=== PATIENT | female | born 1960 | race Caucasian/White ===

== ENCOUNTER 2023-01-19 11:47 | Outpatient (CLI) | payer BC | END 2023-01-19 11:48 | disposition home or self-care (01) | LOC: BICMAMMO 11:47 | DX: Z12.31 Encounter for screening mammogram for malignant neoplasm of breast (principal); Z98.82 Breast implant status | CPT/HCPCS: 77063; 77067 ==

== ENCOUNTER 2023-09-29 11:50 | Outpatient (CLI) | payer BC ==
[2023-09-29 12:38] LABS: #Basophils 0.07 10x3/uL (0.0-0.2); #Eosinphils 0.05 10x3/uL (0.0-0.5); #Monocytes 0.52 10x3/uL (0.0-1.1); #Neutrophils 3.92 10x3/uL (1.5-8.4); %Eosinophils 0.7 % (0.0-6.0); %Lymphocytes 37.7 % (18.0-47.0); %Monocytes 7.1 % (0.0-10.0); %Neutrophils 53.2 % (40.0-75.0); Hematocrit 39.9 % (34.9-44.5); Hemoglobin 13.8 g/dL (12.0-15.5); Mean Corpuscular HGB CONC 34.6 g/dL (32.0-36.0); Mean Corpuscular Hemoglobin 32.8 pg (27.0-33.0); Mean Corpuscular Volume 94.8 fL (81.6-98.3); Mean Platelet Volume 10.9 fL (7.4-10.4); Platelet Count 236 10x3/uL (150-450); RBC Distribution Width 14.6 % (11.5-14.5); Red Blood Cell (RBC) Count 4.21 10x6/uL (3.90-5.03); White Blood Cell (WBC) Count 7.4 10x3/uL (3.5-10.5)
[2023-09-29 12:55] LABS: Anion Gap 13 mmol/L (10-20); BUN (Urea Nitrogen) 14 mg/dL (9.8-20.1); Calc. Creatinine Clearance 0 mL/min (70-130); Calcium 9.2 mg/dL (7.8-10.44); Carbon Dioxide 24 mmol/L (23-31); Chloride 98 mmol/L (98-107); Estimated GFR 75; Glucose 96 mg/dL (80-115); Potassium 4.2 mmol/L (3.5-5.1); Sodium 131 mmol/L (136-145)
== END 2023-09-29 11:51 | disposition home or self-care (01) ==
LOC: LABBT 11:50
PROVIDERS: ATTEND Surgery
DX: Z01.812 Encounter for preprocedural laboratory examination (principal); N63.20 Unspecified lump in the left breast, unspecified quadrant
CPT/HCPCS: 80048; 85025

== ENCOUNTER 2023-10-03 06:59 | Day surgery (SDC) | payer BC ==
[2023-09-29 12:19] VITALS: BMI 25.1
[2023-10-03] MEDS ORDERED: CEFAZOLIN 2 GM VIAL ONE (07:42)
[2023-10-03] MEDS ORDERED: Sodium Chloride 0.9% 100 ML ONE (07:43)
[2023-10-03] MEDS ORDERED: Bupivacaine 0.25% HCL 30 ML VIAL ONE (08:34)
[2023-10-03] MEDS ORDERED: EPINEPHrine 1 MG/ML VIAL ONE (08:34)
[2023-10-03] MEDS ORDERED: Lidocaine 2% PF 5 ML VIAL ONE (08:35)
[2023-10-03 08:55] LABS: Anion Gap 13 mmol/L (10-20); BUN (Urea Nitrogen) 9 mg/dL (9.8-20.1); Calc. Creatinine Clearance 96 mL/min (70-130); Calcium 8.5 mg/dL (7.8-10.44); Carbon Dioxide 21 mmol/L (23-31); Chloride 103 mmol/L (98-107); Estimated GFR 91; Glucose 92 mg/dL (80-115); Sodium 133 mmol/L (136-145)
[2023-10-03] MEDS ORDERED: PROPOFOL 20 ML ONE (09:04)
[2023-10-03] MEDS ORDERED: Lidocaine 1% PF 5 ML VIAL ONE (09:05)
[2023-10-03] MEDS ORDERED: Ondansetron PF 4 MG/2 ML Vial ONE ×2 (09:05→10:42)
[2023-10-03] MEDS ORDERED: fentaNYL PF 100 MCG/2 ML SYRINGE ONE (09:57)
[2023-10-03] MEDS ORDERED: Dexamethasone 20 MG/5 ML VIAL ONE (10:05)
[2023-10-03] MEDS ORDERED: ePHEDrine Sulfate 50 MG/10 ML VIAL ONE (10:06)
[2023-10-03] MEDS ORDERED: Glycopyrrolate 0.2 MG/ML 5 ML SYRINGE ONE (10:19)
[2023-10-03] MEDS ORDERED: Ketorolac Tromethamine 30 MG (1 mL) VIAL ONE (10:20)
== END 2023-10-03 12:35 | disposition home or self-care (01) ==
LOC: SDC 06:59
PROVIDERS: ATTEND Surgery
PROC: 0HBU0ZZ Excision of Left Breast, Open Approach (ICD-10-PCS; principal; 2023-10-03)
DX: C50.912 Malignant neoplasm of unspecified site of left female breast (principal); Z17.0 Estrogen receptor positive status [ER+]
CPT/HCPCS: 80048; 88307; 88341; 88342; 88360; J0171; J0665; J1100; J1885; J2001; J2405; J2704; J3490

== ENCOUNTER 2023-11-01 07:23 | Day surgery (SDC) | payer BC ==
[2023-11-01] MEDS ORDERED: PROPOFOL 40 ML ONE (10:51)
[2023-11-01] MEDS ORDERED: Midazolam HCl 2 mg/2 ml Vial ONE (11:00)
[2023-11-01] MEDS ORDERED: Lidocaine 2% PF 5 ML VIAL ONE ×2 (11:07→11:13)
[2023-11-01] MEDS ORDERED: Bupivacaine 0.25% HCL 30 ML VIAL ONE (11:13)
[2023-11-01] MEDS ORDERED: Methylene Blue 50 MG/10 ML AMPUL ONE (11:13)
[2023-11-01] MEDS ORDERED: EPINEPHrine 1 MG/ML VIAL ONE (11:13)
[2023-11-01] MEDS ORDERED: CEFAZOLIN 2 GM VIAL ONE (11:22)
[2023-11-01] MEDS ORDERED: Sodium Chloride 0.9% 100 ML ONE (11:22)
[2023-11-01] MEDS ORDERED: Fentanyl 250 MCG/5 ML VIAL ONE (11:29)
[2023-11-01] MEDS ORDERED: Dexamethasone 4 mg/ml Vial ONE (11:41)
[2023-11-01] MEDS ORDERED: Glycopyrrolate 0.2 MG/ML 5 ML SYRINGE ONE (11:46)
[2023-11-01] MEDS ORDERED: Ondansetron PF 4 MG/2 ML Vial ONE (12:16)
[2023-11-01] MEDS ORDERED: PHENYLEPHRINE-NS 100 MCG/ML 10 ML SYRINGE ONE (12:18)
[2023-11-01] MEDS ORDERED: fentaNYL PF 100 MCG/2 ML SYRINGE ONE (12:56)
[2023-11-01] MEDS ORDERED: HYDROcodone/Acetaminophen 5/325 mg Tablet ONE (13:30)
== END 2023-11-01 14:26 | disposition home or self-care (01) ==
LOC: NM 07:23
PROVIDERS: ATTEND Surgery
PROC: 07B60ZZ Excision of Left Axillary Lymphatic, Open Approach (ICD-10-PCS; principal; 2023-11-01)
PROC: 0HBU0ZZ Excision of Left Breast, Open Approach (ICD-10-PCS; principal; 2023-11-01)
DX: C50.112 Malignant neoplasm of central portion of left female breast (principal); N60.92 Unspecified benign mammary dysplasia of left breast; Z17.0 Estrogen receptor positive status [ER+]; N60.32 Fibrosclerosis of left breast; Z79.899 Other long term (current) drug therapy
CPT/HCPCS: 78195; 88305; 88307; 88341; 88342; A9541; C1713; J0171; J0665; J1100; J2001; J2250; J2405; J2704; J3010; J3490; Q9968

== ENCOUNTER 2024-02-13 08:08 | Outpatient (CLI) | payer BC | END 2024-02-13 08:09 | disposition home or self-care (01) | LOC: BICMAMMO 08:08 | PROVIDERS: ATTEND Internal Medicine | DX: M85.89 Other specified disorders of bone density and structure, multiple sites (principal) | CPT/HCPCS: 77080 ==

== ENCOUNTER 2024-05-15 07:24 | Outpatient (CLI) | payer BC | END 2024-05-15 07:25 | disposition home or self-care (01) | LOC: BICCT 07:24 | PROVIDERS: ATTEND Internal Medicine | DX: Z12.2 Encounter for screening for malignant neoplasm of respiratory organs (principal); Z87.891 Personal history of nicotine dependence | CPT/HCPCS: 71271 ==

== ENCOUNTER 2024-05-30 10:03 | Outpatient (CLI) | payer OTHER, SELFPAY | END 2024-05-30 10:04 | disposition home or self-care (01) | LOC: CT 10:03 | PROVIDERS: ATTEND Orthopaedic Surgery | DX: M17.11 Unilateral primary osteoarthritis, right knee (principal) ==